=== PATIENT | female | born 1970 | race American Indian/Alaskan Native ===

== ENCOUNTER 2016-10-19 08:44 | Emergency (ER) | payer OTHER ==
--- NOTE | 2016-10-19 09:38 | C.PDOC ---
History Of Present Illness 46 y/o female pmhx borderline diabetes presents to the ED with complaints of chest tightness and pressure since yesterday. Patient also reports today her ears felt clogged, throat tightness, SOB, lightheadedness and burning sensation to bottom of feet. Pt denies similar symptoms in the past. 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 She reports discomfort 3/10 chest pressure. Pt drinks and smokes occasionally, denies drug use. She denies fever, chills, headache, nausea, vomiting, or any other complaints. Time Seen by Provider: 10/19/16 09:16 Chief Complaint (Nursing): Chest Pain History Per: Patient History/Exam Limitations: no limitations Onset/Duration Of Symptoms: Hrs Current Symptoms Are (Timing): Still Present Severity: Mild Pain Scale Rating Of: 3 Quality: Tightness, Pressure Modifying Factors: None Alleviating Factors: None Recent travel outside of the [place]: No Past Medical History Reviewed: Historical Data, Nursing Documentation, Vital Signs Vital Signs: Last Vital Signs Temp 98.0 F 10/19/16 12:15 Pulse 70 10/19/16 12:15 Resp 20 10/19/16 12:15 BP 138/87 10/19/16 12:15 Pulse Ox 100 10/19/16 12:15 Surgical History: Appendectomy Family History: States: Unknown Family Hx - Social History Hx Alcohol Use: Yes Hx Substance Use: No Review Of Systems Except As Marked, All Systems Reviewed And Found Negative. Constitutional: Negative for: Fever, Chills Cardiovascular: Positive for: Chest Pain, Light Headedness Respiratory: Positive for: Shortness of Breath. Negative for: Cough Gastrointestinal: Negative for: Nausea, Vomiting, Diarrhea Skin: Positive for: Other (burning sensation to bottom of feet) Neurological: Negative for: Headache Physical Exam - Physical Exam Appears: Non-toxic, No Acute Distress Skin: Warm, Dry, No Rash Head: Atraumatic, Normacephalic Eye(s): bilateral: Normal Inspection, PERRL, EOMI Ear(s): Bilateral: Normal Nose: Normal Oral Mucosa: Moist Throat: Normal, No Erythema Neck: Normal, Normal ROM, Supple Chest: Symmetrical, No Tenderness Cardiovascular: Rhythm Regular Respiratory: Normal Breath Sounds, No Rales, No Rhonchi, No Wheezing Gastrointestinal/Abdominal: Normal Exam, Soft, No Tenderness Extremity: Normal ROM, Capillary Refill (<2 seconds), Other (no pitting edema) Pulses: Left Dorsalis Pedis: Normal, Right Dorsalis Pedis: Normal Neurological/Psych: Oriented x3, Normal Speech, Normal Cognition, Normal Motor, Normal Sensation ED Course And Treatment - Laboratory Results Result Diagrams: 10/19/16 09:49 10/19/16 09:49 ECG: Interpreted By Me ECG Rhythm: Sinus Rhythm Interpretation Of ECG: occasional PVC Rate From EC (BPM) O2 Sat by Pulse Oximetry: 100 (room air) Pulse Ox Interpretation: Normal Progress Note: Plan: cardiac workup, labs, EKG Medical Decision Making Medical Decision Making: Cardiac labs unremarkable, non-concerning EKG. Patient feeling better after steroids and Albuterol. Will d/c with medication and follow up. Disposition Counseled Patient/Family Regarding: Diagnosis, Need For Followup, Rx Given - Disposition Referrals: [facility] [Outside] [facility] [Outside] Disposition: HOME/ ROUTINE Disposition Time: 13:42 Condition: STABLE Prescriptions: Albuterol HFA [Ventolin HFA 90 mcg/actuation (8 g)] 1 puff IH QID PRN #1 puff PRN Reason: Cough DiphenhydrAMINE [Benadryl] 25 mg PO TID #9 cap Prednisone [Deltasone] 60 mg PO DAILY #9 tablet Instructions: Reactive Airways Disease (ED) Forms: [facility] (Burkinan), General Discharge Instructions, Work Excuse - POA Present On Arrival: None - Clinical Impression Clinical Impression: Reactive airway disease - Scribe Statement The provider has reviewed the documentation as recorded by the Tashi Gamez Provider Attestation: All medical record entries made by the Mxaibdilshad were at my direction and personally dictated by me. I have reviewed the chart and agree that the record accurately reflects my personal performance of the history, physical exam, medical decision making, and the department course for this patient. I have also personally directed, reviewed, and agree with the discharge instructions and disposition.
[2016-10-19 09:54] LABS: HEMATOCRIT 34.4 % (34.0-47.0); WHITE BLOOD COUNT 4.9 K/uL (4.8-10.8)
[2016-10-19 09:55] LABS: BASO # 0.1 K/uL (0.0-0.2); BASO % 1.1 % (0.0-2.0); EOS # 0.1 K/uL (0.0-0.7); EOS % 2.7 % (0.0-4.0); LYMPH # 2.2 K/uL (1.0-4.3); LYMPH % 43.6 % (20.0-40.0); MEAN CELL VOLUME 90.6 fL (81.0-99.0); MEAN CORPUSCULAR HEMOGLOBIN 30.6 pg (27.0-31.0); MEAN CORPUSCULAR HGB CONC 33.8 g/dL (33.0-37.0); MEAN PLATELET VOLUME 7.4 fL (7.2-11.7); MONO # 0.6 K/uL (0.0-0.8); MONO % 11.9 % (0.0-10.0); RED CELL DISTRIBUTION WIDTH 14.2 % (11.5-14.5)
[2016-10-19 10:13] LABS: CHLORIDE 97 mmol/L (98-107)
[2016-10-19 10:14] LABS: POTASSIUM 3.7 mmol/L (3.6-5.2); SODIUM 136 mmol/L (132-148)
[2016-10-19 10:16] LABS: ALB/GLOB RATIO 1.3 (1.0-2.1); ALKALINE PHOSPHATASE 53 U/L (38-126); AST/SGOT 16 U/L (14-36); BILIRUBIN,TOTAL 0.4 mg/dL (0.2-1.3); CARBON DIOXIDE 25 mmol/L (22-30); GFR AFRICAN-AMERICAN > 60; TOTAL PROTEIN 7.1 g/dL (6.3-8.3)
[2016-10-19 10:17] LABS: ALT/SGPT 21 U/L (9-52); BLOOD UREA NITROGEN 10 mg/dL (7-17); CALCIUM 9.2 mg/dl (8.6-10.4); GLUCOSE,RANDOM 101 mg/dL (65-105)
--- NOTE | 2016-10-19 10:28 | RAD ---
HISTORY: chest pain COMPARISON: None available TECHNIQUE: Chest, one view. FINDINGS: Examination limited by habitus. LUNGS: No focal consolidation. Please note that chest x-ray has limited sensitivity for the detection of pulmonary masses. PLEURA: No significant pleural effusion identified. No definite pneumothorax . CARDIOVASCULAR: The cardiomediastinal silhouette appears within normal limits of size. OSSEOUS STRUCTURES: No acute osseous abnormality identified. VISUALIZED UPPER ABDOMEN: Unremarkable. OTHER FINDINGS: None. IMPRESSION: No focal consolidation, significant pleural effusion, or definite pneumothorax identified.
[2016-10-19 10:46] LABS: RBC URINE 2 /hpf (0-3); URINE BACTERIA RARE (<OCC); URINE BILIRUBIN NEGATIVE (NEGATIVE); URINE BLOOD NEGATIVE (NEGATIVE); URINE COLOR Yellow (YELLOW); URINE GLUCOSE (UA) NORMAL (Normal); URINE KETONE NEGATIVE (NEGATIVE); URINE LEUKOCYTE ESTERASE 2+ Leu/uL (Negative); URINE PROTEIN NEGATIVE (NEGATIVE); URINE UROBILINOGEN NORMAL mg/dL (0.2-1.0); WBC URINE 24 /hpf (0-5)
[2016-10-19] MEDS ORDERED: Albuterol 0.083% Inhal Sol (2.5 mg/3 mL) UD IH STA (11:47)
[2016-10-19] MEDS ORDERED: Albuterol 0.083% Inhal Sol (2.5 mg/3 mL) UD ONE (12:15)
[2016-10-19 13:52] VITALS: BP 139/84; PULSE 66; RESP 16; TEMP 97.9; O2SAT 98
--- NOTE | 2016-10-20 19:10 | CARD ---
APPROVED REPORT EKG Measurement Heart [id number] <Conclusion> Normal sinus rhythm Normal ECG
--- NOTE | 2016-10-20 19:10 | CARD ---
APPROVED REPORT EKG Measurement Heart [id number] <Conclusion> Sinus rhythm with occasional premature ventricular complexes Otherwise normal ECG
== END 2016-10-19 14:04 | disposition home or self-care (01) ==
LOC: C.ER 08:44
DX: J45.909 Unspecified asthma, uncomplicated (principal)

== ENCOUNTER 2016-10-25 15:14 | Emergency (ER) | payer OTHER ==
[2016-10-25 15:19] VITALS: TEMP 97.9
--- NOTE | 2016-10-25 15:40 | C.PDOC ---
History Of Present Illness 46 yr old female presents to the ER with reoccurring SOB and chest tightness since morning. Patient reports she is s/p albuterol [employer] with mild relief. Patient reports of dizziness. Prior records show patient was evaluated 10/19 for same complaint and was discharged with prednisone and states he has been compliant. Patient admits to smoking. Denies fever, cough, nausea, vomiting or abdominal pain. RECUR SOB, CHEST TIGHT SINCE TODAY. S/P ALBUTEROL [employer] W MILD RELIEF. NO FEVER, COUGH. +DIZZY. +SMOKE. EVAL 10/19 FOR SAME, COMPLIANT W PREDNISONE EXAM MILD RESP DIST NONTOXIC HEENT NEG LUNGS +RETRACTION SPEAKING FULL SENTENCES DECR BS B/L NO WHEEZE REMAINDER NEG Time Seen by Provider: 10/25/16 16:00 Chief Complaint (Nursing): Shortness Of Breath History Per: Patient History/Exam Limitations: no limitations Onset/Duration Of Symptoms: Sudden Onset (Today ) Current Symptoms Are (Timing): Still Present Past Medical History Reviewed: Historical Data, Nursing Documentation, Vital Signs Vital Signs: Last Vital Signs Temp 97.9 F 10/25/16 15:17 Pulse 72 10/25/16 15:17 Resp 20 10/25/16 15:31 BP 125/87 10/25/16 15:17 Pulse Ox 100 10/25/16 16:46 Surgical History: Appendectomy Family History: States: No Known Family Hx - Social History Hx Alcohol Use: Yes Hx Substance Use: No - Immunization History Hx Tetanus Toxoid Vaccination: No Hx Influenza Vaccination: No Hx Pneumococcal Vaccination: No Review Of Systems Except As Marked, All Systems Reviewed And Found Negative. Constitutional: Negative for: Fever Cardiovascular: Positive for: Chest Pain (Chest tightness) Respiratory: Positive for: Shortness of Breath. Negative for: Cough, Hemoptysis Gastrointestinal: Negative for: Vomiting, Abdominal Pain Neurological: Positive for: Dizziness Physical Exam - Physical Exam Appears: Non-toxic, In Acute Distress (Mild respirtory distress. ) Skin: Warm, Dry, No Rash Head: Atraumatic, Normacephalic Oral Mucosa: Moist Respiratory: Decreased Breath Sounds (Bilateral ), No Wheezing, Other ((+) Retractions. Spekaing in full sentences. ) Extremity: Normal ROM, No Swelling Neurological/Psych: Oriented x3, Normal Speech, Normal Motor ED Course And Treatment ECG: Interpreted By Me ECG Rhythm: Sinus Rhythm ECG Interpretation: Normal Rate From EC (BPM) O2 Sat by Pulse Oximetry: 100 (RA ) Pulse Ox Interpretation: Normal - Radiology CXR: Interpreted by Me CXR Interpretation: Yes: No Acute Disease, Other (Unchanged from prior. ) Progress - Re-Evaluation Re-evaluation Note: 10/25/16 16:46 FEELS BETTER S/P DUONEB. VSS NARD - Data Reviewed Data Reviewed: Diagnostic imaging, Old records Medical Decision Making Medical Decision Making: PLAN: * CXR * EKG * Albuterol IH Disposition Counseled Patient/Family Regarding: Studies Performed, Diagnosis, Need For Followup, Rx Given - Disposition Referrals: YOUR,PMD [Other] Disposition: HOME/ ROUTINE Disposition Time: 17:20 Condition: IMPROVED Prescriptions: predniSONE [Prednisone] 60 mg PO DAILY #18 tab Instructions: Asthma (ED) Forms: [facility] (Haitian), Work Excuse - Clinical Impression Clinical Impression: Asthma exacerbation
[2016-10-25] MEDS ORDERED: Albuterol-Ipratrop 3 mg / 0.5 (3 ml) UD ONE (15:44)
[2016-10-25] MEDS: Albuterol-Ipratrop 3 mg / 0.5 (3 ml) UD IH SCH ×3 (15:45→16:15)
--- NOTE | 2016-10-25 16:26 | RAD ---
HISTORY: ASTHMA COMPARISON: 10/19/2016 TECHNIQUE: Chest PA and lateral FINDINGS: LUNGS: Mild venous congestion. Right hilar prominence. PLEURA: No significant pleural effusion identified. No pneumothorax apparent. CARDIOVASCULAR: Normal. OSSEOUS STRUCTURES: No significant abnormalities. VISUALIZED UPPER ABDOMEN: Normal. OTHER FINDINGS: None. IMPRESSION: Mild venous congestion. Right hilar prominence.
[2016-10-25 17:26] VITALS: BP 132/80; PULSE 81; RESP 18; O2SAT 98
--- NOTE | 2016-10-26 14:20 | CARD ---
APPROVED REPORT EKG Measurement Heart [id number] <Conclusion> Normal sinus rhythm Normal ECG
== END 2016-10-25 17:51 | disposition home or self-care (01) ==
LOC: C.ER 15:14
DX: J45.901 Unspecified asthma with (acute) exacerbation (principal)